=== PATIENT | female | born 1990 | race African-American/Black ===

== ENCOUNTER 2016-08-30 16:31 | Emergency (ER) | payer BC ==
[~2016-08-30] VITALS: Ht 170.2 cm; Wt 78.4 kg
[~2016-08-30 16:31] MED LIST: BCPILLS PO; FLUO10CA48 PO; RIZA10TA18 PO
[2016-08-30 16:34] VITALS: TEMP 37.1; Ht 170.2 cm; Wt 78.4 kg
[2016-08-30] MEDS ORDERED: KETOROLAC TROMETHAMINE 30 MG/ML VIAL IV STA (17:57)
[2016-08-30] MEDS ORDERED: ONDANSETRON INJ 2 MG/ML 2 ML VIAL IV STA (17:57)
[2016-08-30 18:00] VITALS: O2SAT 98
--- NOTE | 2016-08-30 18:02 | DIAGNOSTIC IMAGING REPORT ---
SINGLE VIEW CHEST CLINICAL HISTORY: Fever. Sepsis. Migraine headache. Nausea. FINDINGS: An AP, portable, upright chest radiograph is compared to chest x-ray and chest CT dated 07/04/2016. The cardiomediastinal silhouette is unremarkable. The lungs and pleural spaces are clear. No pneumothorax is seen. The bony thorax is grossly intact. IMPRESSION: No active disease in the chest. Electronically signed by: Davide Botello M.D. 08/30/2016 6:00 PM Dictated Date/Time: 08/30/2016 5:59 PM
[2016-08-30 18:26] LABS: BASO % 0.1 %; BASO ABS # 0.01 K/uL (0-0.2); COMPLETE YES; EOS % 1.1 %; HEMATOCRIT 39.1 % (37-47); IG% 0.1 %; LYMPH % 35.9 %; LYMPH ABS # 2.69 K/uL (1.2-3.4); MEAN CORPUSCULAR HEMOGLOBIN 26.8 pg (25-34); MEAN CORPUSCULAR HGB CONC 32.7 g/dl (32-36); MEAN PLATELET VOLUME 10.3 fL (7.4-10.4); MONO % 6.3 %; NEUT % 56.5 %; PLATELET COUNT 247 K/uL (130-400); RED BLOOD COUNT 4.77 M/uL (4.2-5.4); WHITE BLOOD COUNT 7.49 K/uL (4.8-10.8)
--- NOTE | 2016-08-30 18:35 | DIAGNOSTIC IMAGING REPORT ---
CT SCAN OF THE BRAIN WITHOUT IV CONTRAST CLINICAL HISTORY: Headache. COMPARISON STUDY: CT of the brain dated 11/15/2015. TECHNIQUE: Unenhanced axial CT scan of the brain is performed from the vertex to the skull base. Automated dose control exposure was utilized. CT DOSE: 537.48 mGy.cm FINDINGS: Brain parenchyma: The brain parenchyma is normal in appearance. There is no hemorrhage, mass effect, or evidence of acute territorial ischemia by CT criteria. Cavazos-white matter is preserved. No extra-axial fluid collection is seen. Ventricles, sulci, cisterns: Normal in configuration. Intracranial vasculature: The visualized intracranial vasculature at the skull base is normal in appearance. Calvarium: Unremarkable. Sinuses and mastoids: The visualized paranasal sinuses are clear. The mastoid air cells are well pneumatized. Orbits: The bony orbits are grossly intact. IMPRESSION: No acute intracranial abnormality. Electronically signed by: Davide Botello M.D. 08/30/2016 6:33 PM Dictated Date/Time: 08/30/2016 6:32 PM
[2016-08-30 18:41] LABS: ALT/SGPT 18 U/L (12-78); AST/SGOT 11 U/L (15-37); BLOOD UREA NITROGEN 7 mg/dl (7-18); BUN/CREATININE RATIO 7.8 (10-20); CALCIUM 9.2 mg/dl (8.5-10.1); CARBON DIOXIDE 29 mmol/L (21-32); CHLORIDE 105 mmol/L (98-107); CREATININE 0.89 mg/dl (0.60-1.20); GLUCOSE 78 mg/dl (70-99); POTASSIUM 3.7 mmol/L (3.5-5.1); SODIUM 143 mmol/L (136-145)
[2016-08-30 18:47] LABS: ALKALINE PHOSPHATASE 107 U/L (45-117)
[2016-08-30 18:57] LABS: PREG INTERNAL NEGATIVE QC NEG CLEAR BACKGROUND; PREG INTERNAL POSITIVE QC POS CONTROL LINE
[2016-08-30 19:02] LABS: PROTHROMBIN TIME (PATIENT) 10.6 SECONDS (9.0-12.0)
--- NOTE | 2016-08-30 20:07 | EMERGENCY ROOM VISIT NOTE ---
History Report prepared by Josyibge: Rolando Ledezma Under the Supervision of: Dr. Nick Pham D.O. First contact with patient: 17:09 Chief Complaint: HEADACHE Stated Complaint: CHEST PAIN, MIGRAINE, NAUSEA History of Present Illness The patient is a 26 year old female who presents to the Emergency Room with complaints of persistent migraine that started about a week ago. The patient has a history of migraines. She notes that she sees a Neurologist for these symptoms, but her current medications are not helping her headaches. She also complains of chest pain that started yesterday. She describes the discomfort as a tightness that is worse when she breathes. She notes that is sharp and comes and goes. The patient also complains of nausea. Today, she wasn't able to keep any of her food down. She has been nauseous for 2 days. She denies any chance of . Source of History: patient Onset: a week ago Position: head Timing: other (persistent) Associated Symptoms: + chest pain (tightness, worse with breathing, sharp, comes and goes), + nausea Note: Denies: chance of Review of Systems See HPI for pertinent positives & negatives. A total of 10 systems reviewed and were otherwise negative. Past Medical & Surgical Medical Problems: (1) Angioma (2) Anxiety disorder (3) Breast hypertrophy (4) Chronic headache disorder (5) History of migraine (6) Intractable headache Family History Patient reports no known family medical history. Social History Smoking Status: Never Smoker Drug Use: none Marital Status: single Housing Status: lives with friends Occupation Status: [employer] student Current/Historical Medications Scheduled Control Pills ( Control Pills), 1 TAB PO DAILY Fluoxetine (Prozac), 10 MG PO QAM Scheduled PRN Rizatriptan Benzoate (Maxalt), 10 MG PO UD PRN for MIGRAINES Allergies Coded Allergies: No Known Allergies (Unverified , 08/30/16) Physical Exam Vital Signs Date Time Temp Pulse Resp B/P Pulse Ox O2 Delivery O2 Flow Rate FiO2 08/30/16 19:43 78 18 99/62 98 Room Air 08/30/16 18:00 98 Room Air 08/30/16 16:34 37.1 88 18 133/90 100 Physical Exam CONSTITUTIONAL/VITAL SIGNS: Reviewed / noted above. GENERAL: Non-toxic in appearance. INTEGUMENTARY: Warm, dry, and [place]. HEAD: Normocephalic. EYES: without scleral icterus or trauma. ENT/OROPHARYNX: clear and moist. LYMPHADENOPATHY/NECK: Is supple without lymphadenopathy or meningismus. RESPIRATORY: Lungs clear and equal. CARDIOVASCULAR: Regular rate and rhythm. GI/ABDOMEN: Soft and nontender. No organomegaly or pulsatile mass. No rebound or guarding. Normal bowel sounds. EXTREMITIES: Warm and well perfused. BACK: No CVA tenderness. NEUROLOGICAL: Intact without focal deficits. PSYCHIATRIC: normal affect. MUSCULOSKELETAL: Normally developed with good muscle tone. Medical Decision & Procedures ER Provider Diagnostic Interpretation: X ray results and stated below per my interpretation and radiologist interpretation. Other radiology results and stated below per my review and radiologist interpretation: CT SCAN OF THE BRAIN WITHOUT IV CONTRAST CLINICAL HISTORY: Headache. COMPARISON STUDY: CT of the brain dated 11/15/2015. TECHNIQUE: Unenhanced axial CT scan of the brain is performed from the vertex to the skull base. Automated dose control exposure was utilized. CT DOSE: 537.48 mGy.cm FINDINGS: Brain parenchyma: The brain parenchyma is normal in appearance. There is no hemorrhage, mass effect, or evidence of acute territorial ischemia by CT criteria. Cavazos-white matter is preserved. No extra-axial fluid collection is seen. Ventricles, sulci, cisterns: Normal in configuration. Intracranial vasculature: The visualized intracranial vasculature at the skull base is normal in appearance. Calvarium: Unremarkable. Sinuses and mastoids: The visualized paranasal sinuses are clear. The mastoid air cells are well pneumatized. Orbits: The bony orbits are grossly intact. IMPRESSION: No acute intracranial abnormality. Electronically signed by: Davide Botello M.D. 08/30/2016 6:33 PM Dictated Date/Time: 08/30/2016 6:32 PM SINGLE VIEW CHEST CLINICAL HISTORY: Fever. Sepsis. Migraine headache. Nausea. FINDINGS: An AP, portable, upright chest radiograph is compared to chest x-ray and chest CT dated 07/04/2016. The cardiomediastinal silhouette is unremarkable. The lungs and pleural spaces are clear. No pneumothorax is seen. The bony thorax is grossly intact. IMPRESSION: No active disease in the chest. Electronically signed by: Davide Botello M.D. 08/30/2016 6:00 PM Dictated Date/Time: 08/30/2016 5:59 PM Laboratory Results 1/23/17 18:10 Red Blood Count 4.77, Mean Corpuscular Volume 82.0, Mean Corpuscular Hemoglobin 26.8, Mean Corpuscular Hemoglobin Concent 32.7, Mean Platelet Volume 10.3, Neutrophils (%) (Auto) 56.5, Lymphocytes (%) (Auto) 35.9, Monocytes (%) (Auto) 6.3, Eosinophils (%) (Auto) 1.1, Basophils (%) (Auto) 0.1, Neutrophils # (Auto) 4.23, Lymphocytes # (Auto) 2.69, Monocytes # (Auto) 0.47, Eosinophils # (Auto) 0.08, Basophils # (Auto) 0.01 08/30/16 18:10 Test 08/30/16 18:10 White Blood Count 7.49 K/uL (4.8-10.8) Red Blood Count 4.77 M/uL (4.2-5.4) Hemoglobin 12.8 g/dL (12.0-16.0) Hematocrit 39.1 % (37-47) Mean Corpuscular Volume 82.0 fL (80-100) Mean Corpuscular Hemoglobin 26.8 pg (25-34) Mean Corpuscular Hemoglobin Concent 32.7 g/dl (32-36) Platelet Count 247 K/uL (130-400) Mean Platelet Volume 10.3 fL (7.4-10.4) Neutrophils (%) (Auto) 56.5 % Lymphocytes (%) (Auto) 35.9 % Monocytes (%) (Auto) 6.3 % Eosinophils (%) (Auto) 1.1 % Basophils (%) (Auto) 0.1 % Neutrophils # (Auto) 4.23 K/uL (1.4-6.5) Lymphocytes # (Auto) 2.69 K/uL (1.2-3.4) Monocytes # (Auto) 0.47 K/uL (0.11-0.59) Eosinophils # (Auto) 0.08 K/uL (0-0.5) Basophils # (Auto) 0.01 K/uL (0-0.2) RDW Standard Deviation 42.2 fL (36.4-46.3) RDW Coefficient of Variation 14.0 % (11.5-14.5) Immature Granulocyte % (Auto) 0.1 % Immature Granulocyte # (Auto) 0.01 K/uL (0.00-0.02) Prothrombin Time 10.6 SECONDS (9.0-12.0) Prothromb Time International Ratio 1.0 (0.9-1.1) Activated Partial Thromboplast Time 25.9 SECONDS (21.0-31.0) Partial Thromboplastin Ratio 1.0 D-Dimer 350 ug/L FEU (0-500) Anion Gap 9.0 mmol/L (3-11) Est Creatinine Clear Calc Drug Dose 105.1 ml/min Estimated GFR () 105.1 Estimated GFR (Non- 90.7 BUN/Creatinine Ratio 7.8 (10-20) Calcium Level 9.2 mg/dl (8.5-10.1) Total Bilirubin 0.2 mg/dl (0.2-1) Direct Bilirubin < 0.1 mg/dl (0-0.2) Aspartate Amino Transf (AST/SGOT) 11 U/L (15-37) Alanine Aminotransferase (ALT/SGPT) 18 U/L (12-78) Alkaline Phosphatase 107 U/L (45-117) Total Creatine Kinase 150 U/L (26-192) Creatine Kinase MB < 0.5 ng/ml (0.5-3.6) Creatine Kinase MB Ratio (0-3.0) Troponin I < 0.015 ng/ml (0-0.045) Total Protein 8.0 gm/dl (6.4-8.2) Albumin 3.9 gm/dl (3.4-5.0) Lipase 173 U/L (73-393) Human Chorionic Gonadotropin, Qual NEG (NEG) Laboratory results as stated above per my review. Medications Administered Medications (Trade) Dose Ordered Sig/Matti Route Start Time Stop Time Status Last Admin Dose Admin Ketorolac Tromethamine (Toradol Inj) 30 mg NOW STAT IV 08/30/16 17:57 08/30/16 17:59 DC 08/30/16 18:18 30 MG Ondansetron HCl (Zofran Inj) 4 mg NOW STAT IV 08/30/16 17:57 08/30/16 17:59 DC 08/30/16 18:18 4 MG ECG Indication: chest pain Rate (beats per minute): 69 Rhythm: normal sinus Findings: no acute ischemic change, no ectopy ED Course 1757: Previous medical records were reviewed. The patient was evaluated in room B11. A complete history and physical examination was performed. 1756: Ordered Zofran Inj 4 mg IV, Toradol Inj 30 mg IV. 2007: On reevaluation, the patient is resting comfortably. I discussed the results and findings with the patient. She verbalized agreement of the treatment plan. The patient was discharged home. Medical Decision the differential that was considered includes acute myocardial infarction, acute coronary syndrome, myocarditis, pericarditis, pericardial effusions / tamponad, esophageal perforation, thoracic aortic dissection, pulmonary embolism , pneumonia, pneumothorax, pancreatitis, shingles, acute cholecystitis, perforated abdominal viscus. This is a 26-year-old female who presents to the ED with a chief complaint of chest discomfort. The patient reports that the symptoms started yesterday. She feels tight with her breathing. The patient also reports migraines for the past couple of weeks. She is seeing a neurologist for this. Further details above. The patient's vital signs are stable. Her physical exam was unremarkable. EKG shows a normal sinus rhythm without ischemia or ectopy. A CT scan of the brain did not show any abnormalities. Chest x-ray was negative for acute disease. CBC is unremarkable. Complete metabolic panel was unremarkable. Cardiac enzymes are negative. Urine test is negative. D-dimer is negative. The patient was told the results of tests. She is felt to be stable for discharge and outpatient follow up. She was given IV Toradol and IV Zofran for her symptoms. She drove here today. 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 Impression Primary Impression: Headache Additional Impression: Chest pain, precordial Scribe Attestation The scribe's documentation has been prepared under my direction and personally reviewed by me in its entirety. I confirm that the note above accurately reflects all work, treatment, procedures, and medical decision making performed by me. Departure Information Dispostion Home / Self-Care Referrals Evy Limon M.D. (PCP) Forms HOME CARE DOCUMENTATION FORM, IMPORTANT VISIT INFORMATION Patient Instructions My [facility] Additional Instructions Follow-up with your doctor for further care and evaluation in 1-3 days. Return to the emergency department for worsening or new symptoms or any concerns. You have been examined and treated today on an emergency basis only. This is not a substitute for, or an effort to provide, complete comprehensive medical care. It is impossible to recognize and treat all injuries or illnesses in a single emergency department visit. It is therefore important that you follow up closely with your doctor. Call as soon as possible for an appointment. Problem Qualifiers
[2016-08-30 20:23] VITALS: BP 99/67; PULSE 80; O2SAT 100
== END 2016-08-30 20:30 | disposition home or self-care (01) ==
LOC: C.EDB 16:32
DX: R51 Headache (principal); R07.2 Precordial pain; F41.9 Anxiety disorder, unspecified; Z79.3 Long term (current) use of hormonal contraceptives; Z79.899 Other long term (current) drug therapy

== ENCOUNTER → 2016-12-09 | Outpatient (CLI) | payer BC ==
[~2016-12-09] MED LIST changes: +GADAVIST IV PRN
--- NOTE | 2016-12-09 10:37 | DIAGNOSTIC IMAGING REPORT ---
MRA OF THE LOWER EXTREMITIES AND PELVIS WITH AND WITHOUT CONTRAST CLINICAL HISTORY: Possible hemangioma. Calf pain. COMPARISON STUDY: No previous studies for comparison. TECHNIQUE: Utilizing a 1.5 Olimpia magnet and dedicated coil, multiplanar, multi echo imaging of the pelvis and the lower extremities was performed pre and postcontrast administration according to MRA protocol. Injection of 10 cc of Gadavist IV was uneventful. FINDINGS: A marker was placed on the skin at site of maximal pain. There is a 3.3 x 1.3 x 0.9 cm irregular lobulated T2 hyperintense, slightly T1 hyperintense enhancing lesion within the proximal aspect of the right flexor hallucis longus muscle. There is suggestion of faint blush on the arterial phase images. There is no large draining vein. No additional masses are identified within the lower extremities. There is no osseous involvement. The adjacent vasculature is unremarkable. No significant stenosis or other vascular abnormalities identified within the pelvis or the lower extremities on this examination. Skeletal structures are unremarkable. The MRA portion of this exam is mildly compromised by artifact. Visualized portions of the lower abdomen and the pelvis are unremarkable on this exam. IMPRESSION: 1. 3.3 x 1.3 x 0.9 cm lobulated T2 hyperintense enhancing lesion within the proximal aspect of the right flexor hallucis longus muscle. While nonspecific, the imaging appearance favors an intramuscular hemangioma. 2. Unremarkable MRA of the pelvis and lower extremities although exam mildly compromised by artifact. Electronically signed by: Feliciano Anna M.D. 12/09/2016 10:35 AM Dictated Date/Time: 12/09/2016 10:18 AM
== END | disposition home or self-care (01) ==
LOC: C.MRIBC 07:51
PROVIDERS: ATTEND Surgery Vascular Surgery
DX: D18.00 Hemangioma unspecified site (principal)

== ENCOUNTER → 2016-12-14 | Outpatient (CLI) | payer BC ==
[~2016-12-14] MED LIST changes: -GADAVIST IV PRN
[2016-12-14 09:33] LABS: HEMATOCRIT 39.6 % (37-47); MEAN CELL VOLUME 84.1 fL (80-100); MEAN CORPUSCULAR HEMOGLOBIN 26.5 pg (25-34); MEAN CORPUSCULAR HGB CONC 31.6 g/dl (32-36); MEAN PLATELET VOLUME 10.6 fL (7.4-10.4); PLATELET COUNT 215 K/uL (130-400); RED BLOOD COUNT 4.71 M/uL (4.2-5.4); WHITE BLOOD COUNT 6.93 K/uL (4.8-10.8)
[2016-12-14 09:50] LABS: CALCIUM 8.9 mg/dl (8.5-10.1)
[2016-12-14 09:52] LABS: ALT/SGPT 17 U/L (12-78); AST/SGOT 9 U/L (15-37); BLOOD UREA NITROGEN 6 mg/dl (7-18); BUN/CREATININE RATIO 7.3 (10-20); CARBON DIOXIDE 27 mmol/L (21-32); CHLORIDE 105 mmol/L (98-107); CREATININE 0.83 mg/dl (0.60-1.20); GLUCOSE 91 mg/dl (70-99); POTASSIUM 3.9 mmol/L (3.5-5.1); SODIUM 139 mmol/L (136-145)
[2016-12-14 09:54] LABS: PROLACTIN 19.2 ng/mL
[2016-12-14 09:55] LABS: T3 TOTAL 1.46 ng/ml (0.60-1.81)
[2016-12-14 10:02] LABS: ALB/GLOB RATIO 0.9 (0.9-2); ALKALINE PHOSPHATASE 93 U/L (45-117); FERRITIN 73.3 ng/ml (8.0-388.0); THYROID STIMULATING HORMONE 0.684 uIu/ml (0.300-4.500)
[2016-12-14 10:13] LABS: ESTIMATED AVERAGE GLUCOSE 111 mg/dl; HA1C FLAG Normal (Normal)
[2016-12-15 18:34] LABS: TSI <89 % baseline (<140)
== END | disposition home or self-care (01) ==
LOC: C.LAB1850 08:02
PROVIDERS: ATTEND Internal Medicine Endocrinology, Diabetes & Metabolism
DX: R94.6 Abnormal results of thyroid function studies (principal); Z87.898 Personal history of other specified conditions; M79.1 Myalgia; E55.9 Vitamin D deficiency, unspecified; R73.09 Other abnormal glucose; N92.6 Irregular menstruation, unspecified